=== PATIENT | male | born 1980 | race African-American/Black ===

== ENCOUNTER 2019-02-16 03:25 | Inpatient (IN) | payer OTHER ==
[~2019-02-16 03:25] MED LIST: BUPIVACAINE HCL/PF 0.5% (5 MG/ML) 30 ML VIAL IJ ONE
[2019-02-16] MEDS ORDERED: morphine CARPU-JECT 4 MG/1 ML DISP.SYRIN IVPUSH ONE ×2 (04:15→19:40)
[2019-02-16] MEDS ORDERED: SODIUM CHLORIDE 0.9% 500 ML INFUS.BAG IV ONE (04:18)
[2019-02-16] MEDS ORDERED: ONDANSETRON 4 MG/2 ML VIAL IVPUSH ONE (04:19)
[2019-02-16] MEDS ORDERED: morphine SULFATE 4 MG/ML VIAL ONE ×2 (04:19→19:25)
[2019-02-16] MEDS ORDERED: ONDANSETRON 4 MG/2 ML VIAL ONE (04:20)
--- NOTE | 2019-02-16 04:22 | PDOC ---
Attending Attestation - Resident Resident Name: Pilar Ibanez - ED Attending Attestation I have performed the following: I have examined & evaluated the patient, The case was reviewed & discussed with the resident, I agree w/resident's findings & plan, Exceptions are as noted - HPI HPI: 02/16/19 05:35 Mr Browne is a 38 yo M who presents to the ER with a complaint of abdominal pain , nausea, vomiting Pt reports RLQ pain which began this afternoon Pain is described as sharp, located in the RLQ, no associated flank pain (+) nausea (+) vomiting (>10 episodes of vomiting). No constipation/diarrhea, fevers/chills. - Physicial Exam PE: 02/16/19 04:22 GENERAL: The patient is in no acute distress. ENT: Moist mucous membranes. NECK: Normal range of motion LUNGS: Breath sounds equal, clear to auscultation bilaterally. No wheezes, and no crackles. HEART:Regular rate and rhythm, normal S1 and S2 without murmur, rub or gallop. ABDOMEN: Soft, lower abdominal tenderness to palpation, no involuntary guarding or rebound EXTREMITIES: Normal range of motion, no edema. NEUROLOGICAL: Cranial nerves II through XII grossly intact. Normal speech. No focal neurological deficits. SKIN: Warm, Dry, normal turgor, no rashes or lesions noted. 02/16/19 05:38 - Medical Decision Making 02/16/19 05:38 38 yo M presenting wiht abdominal pain DD: Appendicitis, colitis, enteritis, gastroenteritis, obstruction, cholecystitis, gastritis, gastric ulcer, diverticulitis Will do Labs CT IVF Analgesia/Antiemetics/IVF Re Assess 02/18/19 11:54 Laboratory Tests 02/16/19 02/16/19 02/16/19 04:10 04:10 04:50 WBC 17.8 H Hgb 15.0 Hct 44.3 Plt Count 221 Neutrophils % 88.6 H Lymphocytes % 4.9 L INR BUN 10.4 Creatinine 0.8 Urine Ketones 1+ H Urine Blood Negative Urine Nitrite Negative Ur Leukocyte Esterase 1+ H Urine WBC (Auto) 23 Urine RBC (Auto) 1 02/16/19 04:50 WBC Hgb Hct Plt Count Neutrophils % Lymphocytes % INR 1.13 H BUN Creatinine Urine Ketones Urine Blood Urine Nitrite Ur Leukocyte Esterase Urine WBC (Auto) Urine RBC (Auto) CT pending Signed out to Dr Corona Clinical impression: likely appendicitis, initial presentation
[2019-02-16 04:43] LABS: BASO % 0.2 % (0-2.0); HEMATOCRIT 44.3 % (35.4-49); LYMPH % 4.9 % (8-40); MCH 32.5 pg (25.7-33.7); MEAN CELL VOLUME 95.8 fl (80-96); MONO % 6.3 % (3.8-10.2); NEUT % 88.6 % (42.8-82.8); PLATELET COUNT 221 K/MM3 (134-434); RBC 4.63 M/mm3 (4.00-5.60); RDW 12.8 % (11.9-15.9); WHITE BLOOD COUNT 17.8 K/mm3 (4.0-10.0)
[2019-02-16 05:02] LABS: EPI CELLS 4.6 /HPF (0-5/HPF); HYALINE CASTS 30 /lpf (0-8); URINE APPEARANCE CLEAR; URINE BACTERIA 1.5 /hpf (NEGATIVE); URINE BILIRUBIN NEGATIVE (NEGATIVE); URINE COLOR YELLOW; URINE GLUCOSE (UA) NEGATIVE (NEGATIVE); URINE KETONE 1+ (NEGATIVE); URINE LEUK ESTERASE 1+ (NEGATIVE); URINE NITRITE NEGATIVE (NEGATIVE); URINE PROTEIN NEGATIVE (NEGATIVE); URINE RBC 1 /hpf (0-4); URINE WBC 23 /hpf (0-5)
--- NOTE | 2019-02-16 05:05 | PDOC ---
History of Present Illness - General Chief Complaint: Pain, Acute Stated Complaint: ABD PAIN,VOMITING Time Seen by Provider: 02/16/19 04:10 History Source: Patient Exam Limitations: No Limitations - History of Present Illness Initial Comments: 02/16/19 04:43 38 yo M no PMH presenting with RLQ pain. States that it began acutely 1200 afternoon, sharp, associated with nausea and >10 episodes of vomiting. Denies CP , SOB, constipation/diarrhea, fevers/chills. Past History - Past Medical History Allergies/Adverse Reactions: Allergies Allergy/AdvReac Type Severity Reaction Status Date / Time No Known Allergies Allergy Verified 02/16/19 03:45 Home Medications: Ambulatory Orders NK [No Known Home Medication] 02/16/19 COPD: No - Psycho Social/Smoking Cessation Hx Smoking History: Never smoked Have you smoked in the past 12 months: No Information on smoking cessation initiated: No Hx Alcohol Use: No Drug/Substance Use Hx: No Review of Systems - Review of Systems Constitutional: No: Chills, Diaphoresis, Fever HEENTM: No: Recent change in vision, Ear Discharge, Hearing Loss, Difficulty Swallowing Respiratory: No: Cough, Shortness of Breath Cardiac (ROS): No: Chest Pain ABD/GI: Yes: Nausea, Vomiting. No: Constipated, Diarrhea : No: Burning, Dysuria, Discharge, Frequency, Flank Pain, Hematuria Musculoskeletal: No: Back Pain, Muscle Pain Neurological: No: Headache, Numbness, Seizure, Weakness *Physical Exam - Vital Signs Last Vital Signs Temp Pulse Resp BP Pulse Ox 98.9 F 64 20 126/62 99 02/16/19 03:45 02/16/19 03:45 02/16/19 03:45 02/16/19 03:45 02/16/19 03:45 - Physical Exam Comments: 02/16/19 04:46 Gen: well-developed, well-nourished, appears to be in distress Neuro: AAOX4, CN II-XII intact, FTN intact, EOMI, PERRLA HEENT: atraumatic, normocephalic Neck: trachea midline, supple CV: regular rate, regular rhythm Pulm: CTA b/l, no wheezing Abd: soft, non-distended, ttp in RLQ, negative Rovsing, no rebound MSK: full ROM, intact pulses Extr: no edema, no deformities Skin: warm, dry ED Treatment Course - LABORATORY CBC & Chemistry Diagram: 02/16/19 04:10 02/16/19 20:30 - Medications Given in the ED: ED Medications Discontinued Medications Generic Name Dose Route Start Last Admin Trade Name Jude PRN Reason Stop Dose Admin Morphine Sulfate 4 mg 02/16/19 04:15 02/16/19 04:23 Morphine Injection - IVPUSH 02/16/19 04:16 4 mg ONCE ONE Administration Ondansetron HCl 4 mg 02/16/19 04:19 02/16/19 04:23 Zofran Injection IVPUSH 02/16/19 04:20 4 mg ONCE ONE Administration Sodium Chloride 1,000 ml 02/16/19 04:18 02/16/19 04:18 Normal Saline - IV 02/16/19 04:19 1,000 ml ONCE ONE Administration Medical Decision Making - Medical Decision Making 02/16/19 04:45 Concern for appendicitis. - labs - morphine, IV fluids, Zofran - CT abd/pelvis - likely admit for surgery 02/16/19 05:32 WBC 17.8 02/16/19 07:00 Patient with appendicitis. Will give Zosyn, get pre-op EKG. Get surgery on board , get patient admitted. 02/16/19 07:[address] Hess, will get patient admitted to hospitalist. Discharge - Discharge Information Problems reviewed: Yes Clinical Impression/Diagnosis: Appendicitis Condition: Guarded - Follow up/Referral - Patient Discharge Instructions - Post Discharge Activity
[2019-02-16 05:08] LABS: ALBUMIN 4.4 g/dl (3.4-5.0); BLOOD UREA NITROGEN 10.4 mg/dL (7-18); CALCIUM 9.2 mg/dL (8.5-10.1); CREATININE 0.8 mg/dL (0.55-1.3); POTASSIUM 3.5 mmol/L (3.5-5.1); TOT PROT 7.5 g/dl (6.4-8.2)
[2019-02-16 05:24] LABS: INR 1.13 (0.83-1.09); PROTHROMBIN TIME (PATIENT) 13.4 SEC (9.7-13.0)
[2019-02-16] MEDS ORDERED: LACTATED RINGERS SOLUTION 1,000 ML/1,000 ML INFUS.BAG IV STA (05:48)
[2019-02-16] MEDS ORDERED: PIPERACILLIN/TAZOB 3.375 GM 3.375 GM in DEXTROSE 5%-WATER - 50 ML IVPB ONE (07:04)
[2019-02-16] MEDS ORDERED: ACETAMINOPHEN 1000 MG/100 ML VIAL (NON FORMULARY) IVPB ONE ×2 (07:10→10:26)
--- NOTE | 2019-02-16 07:12 | PDOC ---
*Physical Exam - Vital Signs Last Vital Signs Temp Pulse Resp BP Pulse Ox 98.7 F 68 18 121/66 99 02/16/19 06:13 02/16/19 06:13 02/16/19 06:13 02/16/19 06:13 02/16/19 06:13 ED Treatment Course - LABORATORY CBC & Chemistry Diagram: 02/16/19 04:10 02/16/19 04:10 - ADDITIONAL ORDERS Additional order review: Laboratory Results 02/16/19 02/16/19 02/16/19 04:50 04:50 04:50 PT with INR 13.40 H INR 1.13 H PTT (Actin FS) 28.5 Sodium Potassium Chloride Carbon Dioxide Anion Gap BUN Creatinine Est GFR (CKD-EPI)AfAm Est GFR (CKD-EPI)NonAf Random Glucose Calcium Total Bilirubin AST ALT Alkaline Phosphatase Total Protein Albumin Lipase Urine Color Urine Appearance Urine pH Ur Specific [place] Urine Protein Urine Glucose (UA) Urine Ketones Urine Blood Urine Nitrite Urine Bilirubin Urine Urobilinogen Ur Leukocyte Esterase Urine WBC (Auto) Urine RBC (Auto) Urine Casts (Auto) U Epithel Cells (Auto) U Sm Round Cell (Auto) Urine Bacteria (Auto) Blood Type O POSITIVE Antibody Screen Negative 02/16/19 02/16/19 02/16/19 04:50 04:10 04:10 PT with INR INR PTT (Actin FS) Sodium 140 Potassium 3.5 Chloride 105 Carbon Dioxide 26 Anion Gap 9 BUN 10.4 Creatinine 0.8 Est GFR (CKD-EPI)AfAm 131.34 Est GFR (CKD-EPI)NonAf 113.32 Random Glucose 104 Calcium 9.2 Total Bilirubin 2.0 H AST 12 L ALT 20 Alkaline Phosphatase 70 Total Protein 7.5 Albumin 4.4 Lipase Cancelled 56 L Urine Color Yellow Urine Appearance Clear Urine pH 6.0 Ur Specific [place] 1.022 Urine Protein Negative Urine Glucose (UA) Negative Urine Ketones 1+ H Urine Blood Negative Urine Nitrite Negative Urine Bilirubin Negative Urine Urobilinogen 1.0 Ur Leukocyte Esterase 1+ H Urine WBC (Auto) 23 Urine RBC (Auto) 1 Urine Casts (Auto) 30 U Epithel Cells (Auto) 4.6 U Sm Round Cell (Auto) none seen Urine Bacteria (Auto) 1.5 Blood Type Antibody Screen 02/16/19 04:10 RBC 4.63 MCV 95.8 MCHC 34.0 RDW 12.8 MPV 8.0 Neutrophils % 88.6 H Lymphocytes % 4.9 L Monocytes % 6.3 Eosinophils % 0.0 Basophils % 0.2 - Medications Given in the ED: ED Medications Discontinued Medications Generic Name Dose Route Start Last Admin Trade Name Freq PRN Reason Stop Dose Admin Lactated Ringer's 1,000 ml in 1,000 mls @ 1,000 mls/hr 02/16/19 05:48 06:31 Lactated Ringers Solution IV 02/16/19 06:47 1,000 mls/hr ONCE STA Administration Morphine Sulfate 4 mg 02/16/19 04:15 02/16/19 04:23 Morphine Injection - IVPUSH 02/16/19 04:16 4 mg ONCE ONE Administration Ondansetron HCl 4 mg 02/16/19 04:19 02/16/19 04:23 Zofran Injection IVPUSH 02/16/19 04:20 4 mg ONCE ONE Administration Sodium Chloride 1,000 ml 02/16/19 04:18 02/16/19 04:18 Normal Saline - IV 02/16/19 04:19 1,000 ml ONCE ONE Administration Medical Decision Making - Medical Decision Making 02/16/19 07:12 - Sign out received from Dr. Ibanez
[2019-02-16] MEDS ORDERED: PIPERACILLIN/TAZOB 3.375 GM 3.375 GM/50 ML BAG IVPB ONE (07:13)
[2019-02-16] MEDS ORDERED: ACETAMINOPHEN INJECTION 100 ML IVPB ONE ×2 (07:13→10:59)
--- NOTE | 2019-02-16 08:25 | CONSULT ---
- Consultation REQUESTING PROVIDER: Latha LEBRON CONSULT REQUEST: We have been asked to surgically evaluate this patient for acute appendicitis PCP: HISTORY OF PRESENT ILLNESS: PRATIBHA who is a 38 y/o male who presented to the [facility] ED with RLQ abdominal pain. He tates that it began acutely 1200 afternoon, sharp 02/15/19, associated with nausea and >10 episodes of vomiting. Denies CP, SOB, constipation/diarrhea, fevers/chills.He never had this before; he denies any other GI/ c/o. PMHx: none PSHx: none Home Medications Medication Instructions Recorded NK [No Known Home Medication] 02/16/19 Allergies Allergy/AdvReac Type Severity Reaction Status Date / Time No Known Allergies Allergy Verified 02/16/19 03:45 REVIEW OF SYSTEMS: CONSTITUTIONAL: Absent: fever, chills, diaphoresis, generalized weakness, malaise, loss of appetite, weight change CARDIOVASCULAR: Absent: chest pain, syncope, palpitations, irregular heart rate, lightheadedness , peripheral edema RESPIRATORY: Absent: cough, shortness of breath, dyspnea with exertion, wheezing, stridor, hemoptysis GASTROINTESTINAL: Present: abdominal pain, abdominal distension, nausea, vomiting Absent: diarrhea , constipation, melena, hematochezia GENITOURINARY: Absent: dysuria, frequency, urgency, hesitancy, hematuria, flank pain, genital pain MUSCULOSKELETAL: Absent: myalgia, arthralgia, joint swelling, back pain, neck pain SKIN: Absent: rash, itching, pallor HEMATOLOGIC/IMMUNOLOGIC: Absent: easy bleeding, easy bruising, lymphadenopathy NEUROLOGIC: Absent: headache, focal weakness, paresthesias, dizziness, unsteady gait, seizure, mental status changes, bladder or bowel incontinence PSYCHIATRIC: Absent: anxiety, depression, suicidal or homicidal ideation, hallucinations. PHYSICAL EXAM: GENERAL: Awake, alert, and fully oriented, in no acute distress. HEAD: Normal with no signs of trauma. EYES: PERRL, sclera anicteric, conjunctiva clear. NECK: Normal ROM, supple without lymphadenopathy, JVD, or masses. ABDOMEN: Soft, tender RLQ w/guarding and rebound, not distended, normoactive bowel sounds, , no masses, no hernias No organomegaly.Rovsings/psoas and obturator signs are present MUSCULOSKELETAL: Normal ROM at all joints. No bony deformities or tenderness. No CVA tenderness. UPPER EXTREMITIES: 2+ pulses, warm, well-perfused. No cyanosis. Cap refill <2 seconds. No peripheral edema. LOWER EXTREMITIES: 2+ pulses, warm, well-perfused. No calf tenderness. No peripheral edema. NEUROLOGICAL: Normal speech, gait not observed. PSYCH: Cooperative. Good eye contact. Appropriate mood and affect. SKIN: Warm, dry, normal turgor, no rashes or lesions noted. Vital Signs Temperature 98.7 F 02/16/19 06:13 Pulse Rate 68 02/16/19 06:13 Respiratory Rate 18 02/16/19 06:13 Blood Pressure 121/66 02/16/19 06:13 O2 Sat by Pulse Oximetry (%) 99 02/16/19 06:13 Lab Results WBC 17.8 K/mm3 (4.0-10.0) H 02/16/19 04:10 RBC 4.63 M/mm3 (4.00-5.60) 02/16/19 04:10 Hgb 15.0 GM/dL (11.7-16.9) 02/16/19 04:10 Hct 44.3 % (35.4-49) 02/16/19 04:10 MCV 95.8 fl (80-96) 02/16/19 04:10 MCHC 34.0 g/dl (32.0-35.9) 02/16/19 04:10 RDW 12.8 % (11.9-15.9) 02/16/19 04:10 Plt Count 221 K/MM3 (134-434) 02/16/19 04:10 Sodium 140 mmol/L (136-145) 02/16/19 04:10 Potassium 3.5 mmol/L (3.5-5.1) 02/16/19 04:10 Chloride 105 mmol/L (98-107) 02/16/19 04:10 Carbon Dioxide 26 mmol/L (21-32) 02/16/19 04:10 Anion Gap 9 MMOL/L (8-16) 02/16/19 04:10 BUN 10.4 mg/dL (7-18) 02/16/19 04:10 Creatinine 0.8 mg/dL (0.55-1.3) 02/16/19 04:10 Random Glucose 104 mg/dL (74-106) 02/16/19 04:10 Calcium 9.2 mg/dL (8.5-10.1) 02/16/19 04:10 Blood Type O POSITIVE 02/16/19 04:50 Antibody Screen Negative 02/16/19 04:50 INR 1.13 (0.83-1.09) H 02/16/19 04:50 CT scan a/p reviewed and c/w acute appendicitis w/o abscess/perforation or phlegmon. IMP: acute appendicitis PLAN: For lap appendectomy possible open; r/b/t/a's d/w the patient and informed consent obtained. Pablo Hess MD FACS
[2019-02-16] MEDS ORDERED: ROCURONIUM BROMIDE 50 MG/5 ML SYRINGE ONE (08:35)
[2019-02-16] MEDS ORDERED: MIDAZOLAM HCL 2 MG/2 ML SINGLE DOSE VIAL ONE (08:35)
[2019-02-16] MEDS ORDERED: SUCCINYLCHOLINE CHLORIDE 200 MG/10 ML SYRINGE ONE (08:35)
[2019-02-16] MEDS ORDERED: fentaNYL CITRATE 250 MCG/5 ML VIAL ONE (08:35)
[2019-02-16] MEDS ORDERED: PROPOFOL 20 ML ONE ×2 (08:35→09:45)
[2019-02-16] MEDS ORDERED: HYDROmorphone HCl 2 MG/ML VIAL ONE (09:03)
[2019-02-16] MEDS ORDERED: NEOSTIGMINE METHYLSULFATE 0.5 MG/ML - 10 ML MDV ONE (09:21)
[2019-02-16] MEDS ORDERED: KETOROLAC TROMETHAMINE 30 MG/1 ML VIAL ONE (09:21)
[2019-02-16] MEDS ORDERED: DEXAMETHASONE SOD PHOSPHATE 4 MG/1 ML VIAL ONE (09:21)
[2019-02-16] MEDS ORDERED: BUPIVACAINE HCL/PF 0.5% (5 MG/ML) 30 ML VIAL IJ ONE (09:45)
--- NOTE | 2019-02-16 10:21 | OP ---
Operative Note - Note: Operative Date: 02/16/19 Pre-Operative Diagnosis: acute appendicitis Operation: laparoscopic appendectomy Findings: acute retrocecal appendicitis Post-Operative Diagnosis: Same as Pre-op Surgeon: Pablo Hess Anesthesiologist/FELLER MACHINE OPERATOR: Sebastian Grossman Anesthesia: General Specimens Removed: appendix Estimated Blood Loss (mls): 15 Drains & Tubes with Location: none
[2019-02-16] MEDS ORDERED: ONDANSETRON 4 MG/2 ML VIAL IVPUSH PRN (10:26)
[2019-02-16] MEDS ORDERED: PROMETHAZINE HCL 25 MG/1 ML VIAL IVPB PRN (10:26)
[2019-02-16] MEDS ORDERED: LACTATED RINGERS SOLUTION 1,000 ML/1,000 ML INFUS.BAG IV SCH ×2 (10:30→10:55)
[2019-02-16] MEDS ORDERED: ACETAMINOPHEN 325 MG TABLET (FP) PO PRN (12:26)
--- NOTE | 2019-02-16 14:08 | PN ---
Teaching Attending Note Name of Resident: Elizabeth Brown ATTENDING PHYSICIAN STATEMENT I saw and evaluated the patient. I reviewed the resident's note and discussed the case with the resident. I agree with the resident's findings and plan as documented with exceptions below. SUBJECTIVE: 38 yom with no significant PMHx comes with sudden onset of sharp RLQ abdominal pain, nausea, mulitiple episodes of non bloody vomitus and few episodes of watery stool and subjective fevers. Found with acute appendicitis on CT A/p Currently in PACU, s/p lap appendectomy. Patient denies any pain currently, awake and appropriate. OBJECTIVE: Vital Signs Period Temp Pulse Resp BP Sys/Mott Pulse Ox Last 24 Hr 98 F-99 F 62-834 16-20 121-132/62-88 98-100 Intake & Output 02/13/19 02/14/19 02/15/19 02/16/19 23:59 23:59 23:59 23:59 Intake Total 1500 Output Total 160 Balance 1340 Weight 150 lb GENERAL: Awake, alert, and fully oriented, in no acute distress. HEAD: Normal with no signs of trauma. EYES: Pupils equal, round and reactive to light, extraocular movements intact, sclera anicteric, conjunctiva clear. No lid lag. EARS, NOSE, THROAT: Ears normal, nares patent, oropharynx clear without exudates. Moist mucous membranes. NECK: Normal range of motion, supple, no JVD noted LUNGS: Breath sounds equal, clear to auscultation bilaterally. No wheezes, and no crackles. No accessory muscle use. HEART: Regular rate and rhythm, normal S1 and S2 ABDOMEN: Soft, non distended, mild bleeding around umbilical laparoscopic site, non tender throughout currently, no voluntary or involuntary guarding or rigidity, pos bowel sounds MUSCULOSKELETAL: Normal range of motion at all joints. No bony deformities or tenderness. No CVA tenderness. UPPER EXTREMITIES: 2+ pulses, warm, well-perfused. No cyanosis. No clubbing. No peripheral edema. LOWER EXTREMITIES: 2+ pulses, warm, well-perfused. No calf tenderness. No peripheral edema. NEUROLOGICAL: AAOx3, facial symmetry, speech normal, moves all extremities freely, no gross focal deficit. gait deferred. PSYCHIATRIC: Cooperative. Good eye contact. Appropriate mood and affect. SKIN: Warm, dry, normal turgor, no rashes or lesions noted, normal capillary refill. Home Medications Medication Instructions Recorded NK [No Known Home Medication] 02/16/19 Active Medications Acetaminophen (Tylenol -) 325 mg PO Q4H PRN PRN Reason: PAIN SCALE 6-10 Lactated Ringer's (Lactated Ringers Solution) 1,000 ml in 1,000 mls @ 100 mls/ hr IV ASDIR ERIBERTO Last Admin: 02/16/19 10:12 Dose: 400 mls Ondansetron HCl (Zofran Injection) 4 mg IVPUSH Q6H PRN PRN Reason: NAUSEA AND/OR VOMITING Oxycodone HCl (Roxicodone -) 5 mg PO Q4H PRN PRN Reason: PAIN SCALE 6-10 Laboratory Results - last 24 hr 02/16/19 02/16/19 02/16/19 04:10 04:10 04:10 WBC 17.8 H RBC 4.63 Hgb 15.0 Hct 44.3 MCV 95.8 MCH 32.5 MCHC 34.0 RDW 12.8 Plt Count 221 MPV 8.0 Absolute Neuts (auto) 15.7 H Neutrophils % 88.6 H Lymphocytes % 4.9 L Monocytes % 6.3 Eosinophils % 0.0 Basophils % 0.2 Nucleated RBC % 0 PT with INR INR PTT (Actin FS) Sodium 140 Potassium 3.5 Chloride 105 Carbon Dioxide 26 Anion Gap 9 BUN 10.4 Creatinine 0.8 Est GFR (CKD-EPI)AfAm 131.34 Est GFR (CKD-EPI)NonAf 113.32 Random Glucose 104 Calcium 9.2 Total Bilirubin 2.0 H AST 12 L ALT 20 Alkaline Phosphatase 70 Total Protein 7.5 Albumin 4.4 Lipase 56 L Cancelled Urine Color Urine Appearance Urine pH Ur Specific [place] Urine Protein Urine Glucose (UA) Urine Ketones Urine Blood Urine Nitrite Urine Bilirubin Urine Urobilinogen Ur Leukocyte Esterase Urine WBC (Auto) Urine RBC (Auto) Urine Casts (Auto) U Epithel Cells (Auto) U Sm Round Cell (Auto) Urine Bacteria (Auto) Blood Type Antibody Screen 02/16/19 02/16/19 02/16/19 04:50 04:50 04:50 WBC RBC Hgb Hct MCV MCH MCHC RDW Plt Count MPV Absolute Neuts (auto) Neutrophils % Lymphocytes % Monocytes % Eosinophils % Basophils % Nucleated RBC % PT with INR 13.40 H INR 1.13 H PTT (Actin FS) Sodium Potassium Chloride Carbon Dioxide Anion Gap BUN Creatinine Est GFR (CKD-EPI)AfAm Est GFR (CKD-EPI)NonAf Random Glucose Calcium Total Bilirubin AST ALT Alkaline Phosphatase Total Protein Albumin Lipase Urine Color Yellow Urine Appearance Clear Urine pH 6.0 Ur Specific [place] 1.022 Urine Protein Negative Urine Glucose (UA) Negative Urine Ketones 1+ H Urine Blood Negative Urine Nitrite Negative Urine Bilirubin Negative Urine Urobilinogen 1.0 Ur Leukocyte Esterase 1+ H Urine WBC (Auto) 23 Urine RBC (Auto) 1 Urine Casts (Auto) 30 U Epithel Cells (Auto) 4.6 U Sm Round Cell (Auto) none seen Urine Bacteria (Auto) 1.5 Blood Type O POSITIVE Antibody Screen Negative 02/16/19 02/16/19 04:50 06:30 WBC RBC Hgb Hct MCV MCH MCHC RDW Plt Count MPV Absolute Neuts (auto) Neutrophils % Lymphocytes % Monocytes % Eosinophils % Basophils % Nucleated RBC % PT with INR INR PTT (Actin FS) 28.5 Sodium Potassium Chloride Carbon Dioxide Anion Gap BUN Creatinine Est GFR (CKD-EPI)AfAm Est GFR (CKD-EPI)NonAf Random Glucose Calcium Total Bilirubin AST ALT Alkaline Phosphatase Total Protein Albumin Lipase Urine Color Urine Appearance Urine pH Ur Specific [place] Urine Protein Urine Glucose (UA) Urine Ketones Urine Blood Urine Nitrite Urine Bilirubin Urine Urobilinogen Ur Leukocyte Esterase Urine WBC (Auto) Urine RBC (Auto) Urine Casts (Auto) U Epithel Cells (Auto) U Sm Round Cell (Auto) Urine Bacteria (Auto) Blood Type O POSITIVE Antibody Screen CT A/P results reviewed ASSESSMENT AND PLAN: 38 yom with acute appendicitis. -Acute retrocecal appendicitis s/p laparoscopic appendectomy Plan: Surgery input noted. Clears as tolerated, IV hydration. Discussed with Dr. Hess, hold off on abx. D/c velásquez, ambulation, incentive spirometry DVTPPX per surgery Dispo d/c in 24 hours if doing well, tolerating diet and no concerns. Discussed with patient,care co-ordinated with ED and surgery total admit time 65 min.
--- NOTE | 2019-02-16 14:55 | EKG ---
Test Reason : Blood Pressure : / mmHG Vent. Rate : 064 BPM Atrial Rate : 064 BPM P-R Int : 136 ms QRS Dur : 084 ms QT Int : 394 ms P-R-T Axes : 063 075 063 degrees QTc Int : 406 ms NORMAL SINUS RHYTHM NORMAL ECG NO PREVIOUS ECGS AVAILABLE Confirmed by Sadie Levin ([id number]) on 02/16/2019 2:55:31 PM Referred By: Confirmed By:Sadie Levin
[2019-02-16] MEDS: oxyCODONE HCL 5 MG TABLET PO PRN (15:02)
--- NOTE | 2019-02-16 15:02 | HP ---
CHIEF COMPLAINT: Abdominal Pain PCP: HISTORY OF PRESENT ILLNESS: 38 y/o M with no significant PMHx presents with RLQ Pain. Patient says the pain began suddenly around noon the day; described as a constant sharp 10/10 without radiation accompanied by > 10 episodes of NBNB vomiting. Additionally endorses multiple watery stools and subjective fevers prompting him to visit [facility]. This is the first time he has experienced this pain. No associated triggering or reliving factors. No associated trauma. Denies any chills. chest pain, SOB, dysuria, diarrhea, constipation. ER course was notable for: (1) (2) (3) Recent Travel: Denies PAST MEDICAL HISTORY: Denies PAST SURGICAL HISTORY: Denies Social History: Smoking: Denies Alcohol: Occasionally Drugs: Marijuana use 4x weekly Allergies No Known Allergies Allergy (Verified 02/16/19 03:45) HOME MEDICATIONS: Home Medications Medication Instructions Recorded NK [No Known Home Medication] 02/16/19 REVIEW OF SYSTEMS As per HPI PHYSICAL EXAMINATION Vital Signs - 24 hr 02/16/19 02/16/19 02/16/19 03:45 06:13 10:12 Temperature 98.9 F 98.7 F 98.4 F Pulse Rate 64 834 H Pulse Rate [ 68 Right] Respiratory 20 18 16 Rate Blood Pressure 126/62 127/88 Blood Pressure 121/66 [Arm] O2 Sat by Pulse 99 99 99 Oximetry (%) 02/16/19 02/16/19 02/16/19 10:25 10:40 10:55 Temperature Pulse Rate 76 77 69 Pulse Rate [ Right] Respiratory 18 18 18 Rate Blood Pressure 127/70 121/81 122/70 Blood Pressure [Arm] O2 Sat by Pulse 100 99 98 Oximetry (%) 02/16/19 02/16/19 11:10 12:21 Temperature 99 F 98 F Pulse Rate 62 84 Pulse Rate [ Right] Respiratory 18 19 Rate Blood Pressure 125/76 132/77 Blood Pressure [Arm] O2 Sat by Pulse 98 Oximetry (%) GENERAL: A&Ox3, NAD HEAD: NCAT EYES: PERRL, EOMI EARS, NOSE, THROAT: Moist mucous membranes. NECK: Supple LUNGS: Clear to auscultation bilaterally. No wheezes, no crackles. HEART: Regular rate and rhythm, normal S1 and S2 without murmur ABDOMEN: Soft, no tenderness to palpation, not distended, + bowel sounds, no guarding, no rebound, minimal bleeding noted around surgical dressing site EXTREMITIES: No peripheral edema. NEUROLOGICAL: Cranial nerves II-XII intact. Normal speech. SKIN: Warm, dry Laboratory Results - last 24 hr 02/16/19 02/16/19 02/16/19 04:10 04:10 04:10 WBC 17.8 H RBC 4.63 Hgb 15.0 Hct 44.3 MCV 95.8 MCH 32.5 MCHC 34.0 RDW 12.8 Plt Count 221 MPV 8.0 Absolute Neuts (auto) 15.7 H Neutrophils % 88.6 H Lymphocytes % 4.9 L Monocytes % 6.3 Eosinophils % 0.0 Basophils % 0.2 Nucleated RBC % 0 PT with INR INR PTT (Actin FS) Sodium 140 Potassium 3.5 Chloride 105 Carbon Dioxide 26 Anion Gap 9 BUN 10.4 Creatinine 0.8 Est GFR (CKD-EPI)AfAm 131.34 Est GFR (CKD-EPI)NonAf 113.32 Random Glucose 104 Calcium 9.2 Total Bilirubin 2.0 H AST 12 L ALT 20 Alkaline Phosphatase 70 Total Protein 7.5 Albumin 4.4 Lipase 56 L Cancelled Urine Color Urine Appearance Urine pH Ur Specific [place] Urine Protein Urine Glucose (UA) Urine Ketones Urine Blood Urine Nitrite Urine Bilirubin Urine Urobilinogen Ur Leukocyte Esterase Urine WBC (Auto) Urine RBC (Auto) Urine Casts (Auto) U Epithel Cells (Auto) U Sm Round Cell (Auto) Urine Bacteria (Auto) Blood Type Antibody Screen 02/16/19 02/16/19 02/16/19 04:50 04:50 04:50 WBC RBC Hgb Hct MCV MCH MCHC RDW Plt Count MPV Absolute Neuts (auto) Neutrophils % Lymphocytes % Monocytes % Eosinophils % Basophils % Nucleated RBC % PT with INR 13.40 H INR 1.13 H PTT (Actin FS) Sodium Potassium Chloride Carbon Dioxide Anion Gap BUN Creatinine Est GFR (CKD-EPI)AfAm Est GFR (CKD-EPI)NonAf Random Glucose Calcium Total Bilirubin AST ALT Alkaline Phosphatase Total Protein Albumin Lipase Urine Color Yellow Urine Appearance Clear Urine pH 6.0 Ur Specific [place] 1.022 Urine Protein Negative Urine Glucose (UA) Negative Urine Ketones 1+ H Urine Blood Negative Urine Nitrite Negative Urine Bilirubin Negative Urine Urobilinogen 1.0 Ur Leukocyte Esterase 1+ H Urine WBC (Auto) 23 Urine RBC (Auto) 1 Urine Casts (Auto) 30 U Epithel Cells (Auto) 4.6 U Sm Round Cell (Auto) none seen Urine Bacteria (Auto) 1.5 Blood Type O POSITIVE Antibody Screen Negative 02/16/19 02/16/19 04:50 06:30 WBC RBC Hgb Hct MCV MCH MCHC RDW Plt Count MPV Absolute Neuts (auto) Neutrophils % Lymphocytes % Monocytes % Eosinophils % Basophils % Nucleated RBC % PT with INR INR PTT (Actin FS) 28.5 Sodium Potassium Chloride Carbon Dioxide Anion Gap BUN Creatinine Est GFR (CKD-EPI)AfAm Est GFR (CKD-EPI)NonAf Random Glucose Calcium Total Bilirubin AST ALT Alkaline Phosphatase Total Protein Albumin Lipase Urine Color Urine Appearance Urine pH Ur Specific [place] Urine Protein Urine Glucose (UA) Urine Ketones Urine Blood Urine Nitrite Urine Bilirubin Urine Urobilinogen Ur Leukocyte Esterase Urine WBC (Auto) Urine RBC (Auto) Urine Casts (Auto) U Epithel Cells (Auto) U Sm Round Cell (Auto) Urine Bacteria (Auto) Blood Type O POSITIVE Antibody Screen Active Medications Acetaminophen (Tylenol -) 325 mg PO Q4H PRN PRN Reason: PAIN SCALE 6-10 Last Admin: 02/16/19 15:04 Dose: 325 mg Lactated Ringer's (Lactated Ringers Solution) 1,000 ml in 1,000 mls @ 100 mls/ hr IV ASDIR ERIBERTO Last Admin: 02/16/19 10:12 Dose: 400 mls Ondansetron HCl (Zofran Injection) 4 mg IVPUSH Q6H PRN PRN Reason: NAUSEA AND/OR VOMITING Oxycodone HCl (Roxicodone -) 5 mg PO Q4H PRN PRN Reason: PAIN SCALE 6-10 Last Admin: 02/16/19 15:02 Dose: 5 mg ASSESSMENT/PLAN: 38 y/o M with no significant PMHx presents with RLQ Pain, found to have acute appendicitis. #Acute Appendicitis -S/P Lap Appy (02/16) -General Surgery consulted, appreciate rec's -Received 1 dose pip/tazo in ED; will hold off further abx -Continue IV Hydration via LR @ 100 -Antiemesis via Ondansetron -Analgesia via Acetaminophen, Oxycodone -Clear liquid diet; Advance as per surgery -D/C velásquez once ambulating -Incentive spirometry #FEN -LR @ 100 -Replete Lytes PRN -Clear liquid diet #PPx -DVT: SCDs Dispo: Admit to med-surg Visit type - Emergency Visit Emergency Visit: Yes ED Registration Date: 02/16/19 Care time: The patient presented to the Emergency Department on the above date and was hospitalized for further evaluation of their emergent condition. - New Patient This patient is new to me today: Yes Date on this admission: 02/16/19 - Critical Care Critical Care patient: No ATTENDING PHYSICIAN STATEMENT I saw and evaluated the patient. I reviewed the resident's note and discussed the case with the resident. I agree with the resident's findings and plan as documented. SUBJECTIVE: OBJECTIVE: ASSESSMENT AND PLAN:
[2019-02-16] MEDS: ACETAMINOPHEN 325 MG TABLET (FP) PO PRN (15:04)
[2019-02-16] MEDS ORDERED: HYDROmorphone HCl 2 MG/ML VIAL IVPB ONE ×2 (19:21→19:41)
[2019-02-16] MEDS ORDERED: morphine SULFATE 4 MG/ML VIAL IVPUSH ONE (19:23)
[2019-02-16] MEDS: LACTATED RINGERS SOLUTION 1,000 ML/1,000 ML INFUS.BAG IV SCH (19:42)
--- NOTE | 2019-02-16 19:44 | RAPID ---
Physical Examination Vital Signs: Vital Signs Temperature 97.6 F 02/16/19 18:21 Pulse Rate 100 H 02/16/19 19:40 Respiratory Rate 20 02/16/19 18:21 Blood Pressure 143/68 02/16/19 19:40 O2 Sat by Pulse Oximetry (%) 98 02/16/19 17:56 Labs: CBC, BMP 02/16/19 04:10 02/16/19 04:10 Rapid Response - Rapid Response Assessment: S Rapid response was called overhead at 1918. firmware test engineer team quickly responded. Upon arrival, the patient was in the bed writhing in pain. He described sudden onset 10/10 pain in lower abdominal area. Blood was found on bandage but was not soaked. Muscle spasms happened in right arm and hand during blood pressure monitoring that resolved several minutes later. Pt reassessed after morphine and pain is 6-7/10. He reports muscle spasms have ceased. O 128/112 HR 104 @1921 138/71 HR 109 @1924 128/59 HR 104 @1936 99/78 @1950 A&O, in extreme distress tachycardic, reg rhythm CTAB exquisite tenderness without palpation A/P #abdominal pain s/p appendectomy -morphine 4mg administered -increased fluids to LR 150mL/hr -Dr. Hess notified -vital signs Q2H -KUB not helpful at this time given recent surgery and will have air in abdomen -CTA rescinded given recent surgery; will reassess if pain is not improved. -BMP, Mg, Phos
[2019-02-16 21:51] LABS: BLOOD UREA NITROGEN 8.3 mg/dL (7-18); CALCIUM 8.3 mg/dL (8.5-10.1); MAGNESIUM 1.7 mg/dL (1.8-2.4); PHOSPHOROUS 2.3 mg/dL (2.5-4.9); POTASSIUM 3.7 mmol/L (3.5-5.1)
[2019-02-16] MEDS: MORPHINE SULFATE 2 MG/ML VIAL IVPUSH PRN (22:41)
[2019-02-16] MEDS ORDERED: MAGNESIUM SULF 50% (8.12 MEQ/2 ML-1 GM VIAL) IVPB ONE (22:41)
[2019-02-17] MEDS ORDERED: MAGNESIUM SULF 50% (8.12 MEQ/2 ML-1 GM VIAL) IVPB ONE (01:30)
[2019-02-17] MEDS: LACTATED RINGERS SOLUTION 1,000 ML/1,000 ML INFUS.BAG IV SCH ×2 (04:36→16:07)
[2019-02-17] MEDS: MORPHINE SULFATE 2 MG/ML VIAL IVPUSH PRN (08:33)
[2019-02-17 08:53] LABS: BASO % 0.3 % (0-2.0); EOS % 0.8 % (0-4.5); HEMATOCRIT 29.1 % (35.4-49); HEMOGLOBIN 10.1 GM/dL (11.7-16.9); LYMPH % 17.9 % (8-40); MCH 33.1 pg (25.7-33.7); MCHC 34.6 g/dl (32.0-35.9); MEAN CELL VOLUME 95.5 fl (80-96); MEAN PLT VOLUME 7.5 fl (7.5-11.1); MONO % 9.1 % (3.8-10.2); NEUT % 71.9 % (42.8-82.8); PLATELET COUNT 159 K/MM3 (134-434); RBC 3.04 M/mm3 (4.00-5.60); RDW 12.8 % (11.9-15.9); WHITE BLOOD COUNT 9.9 K/mm3 (4.0-10.0)
[2019-02-17 09:28] LABS: ALBUMIN 3.1 g/dl (3.4-5.0); BILIRUBIN,TOTAL 1.8 mg/dL (0.2-1); BLOOD UREA NITROGEN 7.8 mg/dL (7-18); CALCIUM 8.1 mg/dL (8.5-10.1); MAGNESIUM 2.2 mg/dL (1.8-2.4); PHOSPHOROUS 2.8 mg/dL (2.5-4.9); POTASSIUM 3.6 mmol/L (3.5-5.1); TOT PROT 5.4 g/dl (6.4-8.2)
--- NOTE | 2019-02-17 11:27 | PN ---
Progress Note (short form) - Note Progress Note: Attending Surgeon POD#1 c/o pain at port sites; tolerated liquids and voided; had an episode of agitation and severe pain post op which resolved. Last Vital Signs Temp Pulse Resp BP Pulse Ox 98.5 F 82 18 131/82 98 02/17/19 06:00 02/17/19 06:00 02/17/19 06:00 02/17/19 06:00 02/16/19 21:00 abdo-soft; slightly tympanitic; port sites c/d/i w/ tenderness to palpation; o/ w negative. CBC, BMP 02/17/19 07:52 02/17/19 07:52 IMP: stable post op course PLAN: Continue present tx. recheck CBC and observe; h/h drop ? related to dehydration; doubt surgical blood loss.. Pablo Hess MD FACS
--- NOTE | 2019-02-17 11:58 | OP ---
DATE OF OPERATION: 02/16/2019 PREOPERATIVE DIAGNOSIS: Acute appendicitis. POSTOPERATIVE DIAGNOSIS: Acute appendicitis. PROCEDURE: Laparoscopic appendectomy. SURGEON: Pablo Hess MD ANESTHESIA: General. OPERATIVE FINDINGS: Acute appendicitis and the appendix was retrocecal in nature. The rest of the findings were unremarkable. PROCEDURE: The patient was placed on the operating table in the supine position. After the induction of general anesthesia, patient's abdomen was prepped with ChloraPrep and draped in sterile fashion. A Frazier catheter had been placed after induction of anesthesia. The timeout was taken and pneumoperitoneum established above the umbilicus using a Veress needle to an intraabdominal pressure of 15 mmHg. Additional left lower quadrant and a 12-mm suprapubic port were placed under direct vision without incident. Laparoscopy was carried out and the previously noted findings were observed. The appendix was grasped and using the LigaSure the mesoappendix was serially divided down to the base of the appendix as were some adhesions medially at the base of the appendix. Once completely cleared, a 45- mm purple load Endo ARLETTE was fired across the base of the appendix. Complete hemostasis was verified and the appendix placed in an Endo Catch and brought up to the abdominal wall. Irrigation was carried out with normal saline and again hemostasis verified, and then all ports removed under laparoscopic vision without evidence of bleeding from the port sites and the appendix removed with the suprapubic port. All port sites were infiltrated with 0.5% Marcaine and then the defect at the suprapubic port site was closed with a single 0 Vicryl [id number] suture. All skin incisions were closed with 4-0 Monocryl in a subcuticular fashion followed by Steri- Strips and Band-Aid dressings. The Frazier catheter was removed and the patient aroused from general anesthesia and transferred to the postanesthesia care unit in stable condition awake and alert. ESTIMATED BLOOD LOSS: 15 mL REPLACEMENTS: Crystalloid. DRAINS: None. SPECIMEN: Appendix to pathology. I, Pablo Hess, was physically present in the operating room from the time the patient was placed on the operating room table until he was transferred to the postanesthesia care unit in [place]. MD CHARLY Armando/[id number] [email or web address]
[2019-02-17] MEDS: oxyCODONE HCL 5 MG TABLET PO PRN ×3 (12:31→23:51)
[2019-02-17 12:51] LABS: HEMATOCRIT 31.6 % (35.4-49); HEMOGLOBIN 10.8 GM/dL (11.7-16.9); MCH 32.8 pg (25.7-33.7); MCHC 34.2 g/dl (32.0-35.9); MEAN PLT VOLUME 7.2 fl (7.5-11.1); PLATELET COUNT 177 K/MM3 (134-434); RBC 3.29 M/mm3 (4.00-5.60); RDW 13.1 % (11.9-15.9); WHITE BLOOD COUNT 9.3 K/mm3 (4.0-10.0)
[2019-02-17] MEDS ORDERED: POTASSIUM CHLORIDE TABS 20 MEQ TABLET.ER (FP) PO ONE (13:01)
--- NOTE | 2019-02-17 13:08 | PN ---
Physical Exam: SUBJECTIVE: Patient seen and examined, abdominal pain better, tolerating diet. pain overnight, currently well controlled, no complaints otherwise. OBJECTIVE: Vital Signs Period Temp Pulse Resp BP Sys/Mott Pulse Ox Last 24 Hr 97.6 F-98.8 F 67-110 18-20 99-157/59-112 96-99 Intake & Output 02/14/19 02/15/19 02/16/19 02/17/19 23:59 23:59 23:59 23:59 Intake Total 2100 2300 Output Total 160 Balance 1940 2300 Weight 145 lb 9.6 oz General: lying in bed no acute distress Chest: CTAB, no rales or wheezing Abdomen:soft, improved distension, no bleed at laparoscopic site today, pos bowel sounds, Minimal lower abdominal tenderness (improved), no voluntary or involuntary guarding or rigidity Neck: soft, supple HEENT: PERRL, EOMI Extremities: no edema Laboratory Results - last 24 hr 02/16/19 02/17/19 02/17/19 20:30 07:52 07:52 WBC 9.9 RBC 3.04 L Hgb 10.1 L Hct 29.1 L D MCV 95.5 MCH 33.1 MCHC 34.6 RDW 12.8 Plt Count 159 D MPV 7.5 Absolute Neuts (auto) 7.2 Neutrophils % 71.9 Lymphocytes % 17.9 D Monocytes % 9.1 Eosinophils % 0.8 D Basophils % 0.3 Nucleated RBC % 0 Sodium 142 143 Potassium 3.7 3.6 Chloride 110 H 110 H Carbon Dioxide 26 28 Anion Gap 7 L 6 L BUN 8.3 7.8 Creatinine 1.0 1.0 Est GFR (CKD-EPI)AfAm 110.17 110.17 Est GFR (CKD-EPI)NonAf 95.05 95.05 Random Glucose 101 88 Calcium 8.3 L 8.1 L Phosphorus 2.3 L 2.8 Magnesium 1.7 L 2.2 Total Bilirubin 1.8 H AST 13 L ALT 16 Alkaline Phosphatase 42 L Total Protein 5.4 L Albumin 3.1 L 02/17/19 12:14 WBC 9.3 RBC 3.29 L Hgb 10.8 L Hct 31.6 L MCV 96.0 MCH 32.8 MCHC 34.2 RDW 13.1 Plt Count 177 MPV 7.2 L Absolute Neuts (auto) Neutrophils % Lymphocytes % Monocytes % Eosinophils % Basophils % Nucleated RBC % Sodium Potassium Chloride Carbon Dioxide Anion Gap BUN Creatinine Est GFR (CKD-EPI)AfAm Est GFR (CKD-EPI)NonAf Random Glucose Calcium Phosphorus Magnesium Total Bilirubin AST ALT Alkaline Phosphatase Total Protein Albumin Active Medications Generic Name Dose Route Start Last Admin Trade Name Freq PRN Reason Stop Dose Admin Acetaminophen 325 mg 02/16/19 14:11 02/16/19 15:04 Tylenol - PO 325 mg Q4H PRN Administration PAIN SCALE 6-10 Lactated Ringer's 1,000 ml in 1,000 mls @ 75 mls/hr 02/17/19 13:01 Lactated Ringers Solution IV ASDIR ERIBERTO Ondansetron HCl 4 mg 02/16/19 10:26 Zofran Injection IVPUSH Q6H PRN NAUSEA AND/OR VOMITING Oxycodone HCl 5 mg 02/16/19 12:26 02/17/19 12:31 Roxicodone - PO 5 mg Q4H PRN Administration PAIN SCALE 6-10 Potassium Chloride 40 meq 02/17/19 13:01 K-Dur - PO 02/17/19 13:02 ONCE ONE ASSESSMENT/PLAN: 38 yom with acute appendicitis. -Acute retrocecal appendicitis s/p laparoscopic appendectomy -Acute anemia, suspect from hemodilution/Surgical blood loss Plan: Tolerating diet, overnight events noted. Will d/c morphine, po pain control. Surgery input noted. repeat h/h stable, low concerns for active bleed. Decreased IVF. Encourage ambulation, incentive spirometry DVTPPX per surgery Dispo d/c in 24 hours if doing well, tolerating diet and no concerns. Discussed with patient and nursing, care co-ordinated with surgery. Visit type - Emergency Visit Emergency Visit: Yes ED Registration Date: 02/16/19 Care time: The patient presented to the Emergency Department on the above date and was hospitalized for further evaluation of their emergent condition. - New Patient This patient is new to me today: No - Critical Care Critical Care patient: No - Discharge Referral Referred to [facility] Med P.C.: No
--- NOTE | 2019-02-17 16:36 | PN ---
Progress Note (short form) - Note Progress Note: 38M s/p laparoscopic appendectomy under GA. Tolerating PO. Pain managed. Vital Signs Temperature 97.4 F L 02/17/19 13:19 Pulse Rate 56 L 02/17/19 13:19 Respiratory Rate 20 02/17/19 13:19 Blood Pressure 143/88 02/17/19 13:19 O2 Sat by Pulse Oximetry (%) 99 02/17/19 09:00 Active Medications Acetaminophen (Tylenol -) 325 mg PO Q4H PRN PRN Reason: PAIN SCALE 6-10 Last Admin: 02/16/19 15:04 Dose: 325 mg Lactated Ringer's (Lactated Ringers Solution) 1,000 ml in 1,000 mls @ 75 mls/ hr IV ASDIR ERIBERTO Last Admin: 02/17/19 16:07 Dose: 75 mls/hr Ondansetron HCl (Zofran Injection) 4 mg IVPUSH Q6H PRN PRN Reason: NAUSEA AND/OR VOMITING Oxycodone HCl (Roxicodone -) 5 mg PO Q4H PRN PRN Reason: PAIN SCALE 6-10 Last Admin: 02/17/19 12:31 Dose: 5 mg - No anesthetic complications - Care per primary service
[2019-02-17] MEDS: ACETAMINOPHEN 325 MG TABLET (FP) PO PRN (23:51)
[2019-02-18] MEDS: LACTATED RINGERS SOLUTION 1,000 ML/1,000 ML INFUS.BAG IV SCH (04:51)
[2019-02-18] MEDS: ACETAMINOPHEN 325 MG TABLET (FP) PO PRN (08:00)
[2019-02-18] MEDS: oxyCODONE HCL 5 MG TABLET PO PRN (08:00)
[2019-02-18 08:26] LABS: EOS % 3.2 % (0-4.5); HEMATOCRIT 29.1 % (35.4-49); HEMOGLOBIN 10.1 GM/dL (11.7-16.9); LYMPH % 30.9 % (8-40); MCH 33.3 pg (25.7-33.7); MCHC 34.7 g/dl (32.0-35.9); MEAN CELL VOLUME 95.9 fl (80-96); MEAN PLT VOLUME 7.3 fl (7.5-11.1); MONO % 9.4 % (3.8-10.2); NEUT % 55.5 % (42.8-82.8); PLATELET COUNT 153 K/MM3 (134-434); RBC 3.03 M/mm3 (4.00-5.60); RDW 12.9 % (11.9-15.9); WHITE BLOOD COUNT 5.5 K/mm3 (4.0-10.0)
[2019-02-18 08:57] VITALS: BP 152/85; PULSE 69; TEMP 98.9
--- NOTE | 2019-02-18 12:04 | PN ---
Teaching Attending Note Name of Resident: Anastasiya Collier ATTENDING PHYSICIAN STATEMENT I saw and evaluated the patient. I reviewed the resident's note and discussed the case with the resident. I agree with the resident's findings and plan as documented with exceptions below. SUBJECTIVE: patient seen and examined, pain better, tolerating diet, had a BM, no complaints. OBJECTIVE: Vital Signs Period Temp Pulse Resp BP Sys/Mott Pulse Ox Last 24 Hr 97.4 F-99.3 F 56-88 18-60 118-152/56-88 Intake & Output 02/15/19 02/16/19 02/17/19 02/18/19 23:59 23:59 23:59 23:59 Intake Total 2100 2500 1380 Output Total 160 500 Balance 1940 2500 880 Weight 145 lb 9.6 oz General: lying in bed in no acute distress chest: CTAb, no rales or wheezing neck: soft, supple Abdomen:Soft, NT throughout, laparoscopic dressings clean, no voluntary or involuntary guarding or rigidity, pos bowel sounds Extremities: no edema Home Medications Medication Instructions Recorded NK [No Known Home Medication] 02/16/19 Active Medications Acetaminophen (Tylenol -) 325 mg PO Q4H PRN PRN Reason: PAIN SCALE 6-10 Last Admin: 02/18/19 08:00 Dose: 325 mg Lactated Ringer's (Lactated Ringers Solution) 1,000 ml in 1,000 mls @ 75 mls/ hr IV ASDIR ERIBERTO Last Admin: 02/18/19 04:51 Dose: 75 mls/hr Ondansetron HCl (Zofran Injection) 4 mg IVPUSH Q6H PRN PRN Reason: NAUSEA AND/OR VOMITING Oxycodone HCl (Roxicodone -) 5 mg PO Q4H PRN PRN Reason: PAIN SCALE 6-10 Last Admin: 02/18/19 08:00 Dose: 5 mg Laboratory Results - last 24 hr 02/17/19 02/18/19 12:14 07:40 WBC 9.3 5.5 RBC 3.29 L 3.03 L Hgb 10.8 L 10.1 L Hct 31.6 L 29.1 L MCV 96.0 95.9 MCH 32.8 33.3 MCHC 34.2 34.7 RDW 13.1 12.9 Plt Count 177 153 MPV 7.2 L 7.3 L Absolute Neuts (auto) 3.1 Neutrophils % 55.5 D Lymphocytes % 30.9 D Monocytes % 9.4 Eosinophils % 3.2 D Basophils % 1.0 D Nucleated RBC % 0 ASSESSMENT AND PLAN: 38 yom with acute appendicitis. -Acute retrocecal appendicitis s/p laparoscopic appendectomy -Acute anemia, suspect from hemodilution/Surgical blood loss Plan: doing well, tolerating diet well, pain better. H/h overall stable No hemodynamic stability or concerns for ongoing bleed dc home today with outpatient surgery follow up. Discussed with patient and nursing in detail, all questions answered.
[2019-02-18 14:20] VITALS: BMI 20.7
--- NOTE | 2019-02-18 18:09 | DS ---
Physical Exam: SUBJECTIVE: Patient seen and examined. He reports improved abdominal pain 5/10. It is still in the lower abdomen. He denies fever, chills, nausea, vomiting. He had a BM yesterday. He is tolerating diet well. OBJECTIVE: Vital Signs Period Temp Pulse Resp BP Sys/Mott Pulse Ox Last 24 Hr 98.0 F-99.3 F 56-69 18-60 118-152/56-85 PHYSICAL EXAM GENERAL: The patient is awake, alert, and fully oriented, in no acute distress. HEAD: Normal with no signs of trauma. EYES: PERRL, extraocular movements intact ENT: Ears normal, nares patent, moist mucous membranes. NECK: Trachea midline, full range of motion LUNGS: Breath sounds equal, clear to auscultation bilaterally, no accessory muscle use. HEART: Regular rate and rhythm, no murmur ABDOMEN: Soft, nontender, nondistended, normoactive bowel sounds EXTREMITIES: Warm, well-perfused, no edema. NEUROLOGICAL: Normal speech PSYCH: Normal mood, normal affect. SKIN: Warm, dry, normal turgor LABS Laboratory Results - last 24 hr 02/18/19 07:40 WBC 5.5 RBC 3.03 L Hgb 10.1 L Hct 29.1 L MCV 95.9 MCH 33.3 MCHC 34.7 RDW 12.9 Plt Count 153 MPV 7.3 L Absolute Neuts (auto) 3.1 Neutrophils % 55.5 D Lymphocytes % 30.9 D Monocytes % 9.4 Eosinophils % 3.2 D Basophils % 1.0 D Nucleated RBC % 0 HOSPITAL COURSE: Mr. Browne is a 38y/o male with marijuana use disorder presents with abdominal pain and vomiting with leukocytosis. CT showed acute appendicitis. Lap appendectomy performed with no complication. A rapid response was called later that evening due to extreme abdominal pain. Tetany occurred with blood pressure cuff tightening x2. Electrolytes were replenished. His abdominal pain improved. He was instructed to follow up with surgery. Date of Admission:02/16/19 Date of Discharge: 02/18/19 Minutes to complete discharge: 35 Discharge Summary Problems reviewed: Yes Reason For Visit: APPENDICITIS Condition: Stable - Instructions Diet, Activity, Other Instructions: Hospital Visit: You were admitted to the hospital for abdominal pain and vomiting. You were found to have appendicitis. Your appendix was removed. You had an episode some pain a little while after surgery, but it is now better controlled. You are now able to go home. Your red blood cell level was low during your stay. This might be from the fluids you received. Follow up with a primary care doctor in the next 2-3 weeks to have a CBC lab done to check your hemoglobin to see if it has gone up. Your total bilirubin level was a little high during your stay. This may be due to the appendicitis. Follow up with your doctor for repeat test as below. Medications: Take Tylenol (acetaminophen) or Advil (Motrin or ibuprofen) as directed on the bottle for pain. Follow up with: Dr. Hess, surgery, in 7-10 days. Call his office at the number below to schedule an appointment. Your primary care doctor in 2-3 weeks to check CBC and CMP. If you do not have one, you may follow up with Dr. Nelson (Dr. Collier) at the [facility]. Other instructions: Return to the emergency room if you feel lightheaded or very weak, have chest pain, trouble breathing, a lot of bleeding, or muscle spasms. Try to keep yourself hydrated by drinking water or sports drinks. This will help with muscle spasms. Dr. Hess Discharge Instructions Dear CRYSTAL BROWNE, Post Operative Instructions Physical activity Resume your normal everyday activity as tolerated no heavy lifting or exercise until seen by your surgeon. You may walk unlimited amounts of and climb stairs. You may resume driving the car when you feel safe and comfortable behind the wheel. Wound care If you have a bandage, leave it on, and keep dry for 48 - 72 hours. After that time discard the outer bandage. If there are tapes on the skin under the outer bandage, leave them in place. They will peel off in the next 7 to 10 days. Do Not peel them off. You may shower 2 days after surgery. If there are tapes present on the skin, they can get wet. Diet There are no dietary restrictions. Eat healthy, high-fiber foods. Drink 6 to 8 glasses of liquid each day. This will assist in keeping your bowels are regular. Pain management You may take Tylenol or acetaminophen or Ibuprofen (for example, Motrin, Advil etc.) Any pain prescription medication ordered should be taken as prescribed for moderate to severe pain. Call Dr. Hess for any of the following: Severe pain not relieved by medication Fever of 101 or higher Excessive bleeding or drainage on dressing Inability to urinate Call the office at [phone] for a post operative appointment in 7 - 10 days. Referrals: Walter Nelson MD [Staff Physician] - (Dr. Collier) Pablo Hess MD [Staff Physician] - Disposition: HOME - Home Medications Comprehensive Discharge Medication List: Ambulatory Orders NK [No Known Home Medication] 02/16/19 This patient is new to me today: Yes Date on this admission: 02/18/19 Emergency Visit: Yes ED Registration Date: 02/16/19 Care time: The patient presented to the Emergency Department on the above date and was hospitalized for further evaluation of their emergent condition. Critical Care patient: No - Discharge Referral Referred to [facility] Med P.C.: No ATTENDING PHYSICIAN STATEMENT I saw and evaluated the patient. I reviewed the resident's note and discussed the case with the resident. I agree with the resident's findings and plan as documented. SUBJECTIVE: OBJECTIVE: ASSESSMENT AND PLAN:
--- NOTE | 2019-02-19 17:45 | PATH ---
Surgical Pathology Report Patient Name: CRYSTAL CASTILLO [facility]. Rec. #: [id number] /Age/Gender: 1980 (Age: 38) / M Account: [id number] Location: [address] [place] [address] Taken: 02/16/2019 Received: 02/18/2019 Reported: 02/19/2019 Physicians: Pablo Hess MD Specimen(s) Received APPENDIX Clinical History Acute appendicitis Final Diagnosis APPENDIX, APPENDECTOMY: ACUTE APPENDICITIS AND PERIAPPENDICITIS. Electronically Signed Dewayne Garcia M.D. Gross Description Specimen is received in formalin, labeled "appendix", and consists of an appendix, measuring 6cm in length and 0.9cm in average diameter. The serosal (external) surface of the appendix is dull and covered by purulent material. On opening the appendix contains purulent material. The mucosal surface is red-brown and ulcerated. Splitting Machine Operator Helper sections are submitted in one cassette. ISAAC/02/18/2019 michelle/02/18/2019
== END 2019-02-18 12:46 | disposition home or self-care (01) | DRG 225 ==
LOC: JER 03:25 → JERBED 07:12 → J5S 11:28 → J6S 02-17 15:33
PROVIDERS: ADMIT Hospitalist; ATTEND Hospitalist
PROC: 0DTJ4ZZ Resection of Appendix, Percutaneous Endoscopic Approach (ICD-10-PCS; principal; 2019-02-16 08:50)
DX: K35.80 Unspecified acute appendicitis (principal); R00.0 Tachycardia, unspecified; D62 Acute posthemorrhagic anemia; R11.10 Vomiting, unspecified; D72.829 Elevated white blood cell count, unspecified
CPT/HCPCS: 36415; 74177-TC; 80048; 80053; 81003; 83690; 83735; 84100; 85025; 85027; 85610; 85730; 86850; 86900; 86901; 88304-TC; 93005; 93010; 94010; 94760; 97116-GP; 97161-GP; 99283-25; J0131

== ENCOUNTER 2019-04-12 08:20 | Emergency (ER) | payer OTHER ==
[2019-04-12 08:28] VITALS: BMI 21.5
[2019-04-12] MEDS ORDERED: ACETAMINOPHEN 1000 MG/100 ML VIAL (NON FORMULARY) IVPB ONE (09:11)
[2019-04-12] MEDS ORDERED: SODIUM CHLORIDE 1,000 ML IV STA (09:12)
--- NOTE | 2019-04-12 09:13 | PDOC ---
Attending Attestation - Resident Resident Name: Jenni Hong - ED Attending Attestation I have performed the following: I have examined & evaluated the patient, The case was reviewed & discussed with the resident, I agree w/resident's findings & plan, Exceptions are as noted - HPI HPI: 04/12/19 09:14 Mr Browne is a 38 yo M who presents to the ER with a complaint of abdominal pain He has a history of marijuana use disorder, 2 months s/p laproscopic appendectomy Per chart review, a rapid response was called for sudden onset 10/10 abdominal pain Pt reports that he was in his usual state of health He awoke at approximately 2 am with severe abdominal pain ,rated 10/10, constant , located in the lower abdomen, no alleviating factors Reports nause and vomiting Last used marijuana yesterday No fevers or chills No flatus Unable to tell me when his last bowel movement was 04/12/19 09:38 04/12/19 09:39 04/12/19 09:41 - Physicial Exam PE: 04/12/19 09:13 GENERAL: The patient is writhing in pain ENT: Ears normal, nares patent, oropharynx clear without exudates. Moist mucous membranes. NECK: Normal range of motion, supple LUNGS: Breath sounds equal, clear to auscultation bilaterally. No wheezes, and no crackles. HEART:Regular rate and rhythm, normal S1 and S2 without murmur, rub or gallop. ABDOMEN: Guarding, tender to palpation in the lower abdomen, no distention EXTREMITIES: Normal range of motion, no edema. NEUROLOGICAL: Cranial nerves II through XII grossly intact. Normal speech. No focal neurological deficits. SKIN: Warm, Dry, normal turgor, no rashes or lesions noted. 04/12/19 09:34 - Medical Decision Making 04/12/19 09:37 38 yo m presenting to the ER with a complaint of abdominal pain, (+) vomiting, no flatus DD: colitis, enteritis, gastroenteritis, obstruction, cholecystitis, gastritis, gastric ulcer, diverticulitis, cyclical vomiting syndrome Will do: Labs IV hydration Pain medications CT Re Assess 04/12/19 10:33 Laboratory Tests 04/12/19 04/12/19 04/12/19 09:15 09:15 09:15 WBC 7.9 Hgb 15.2 Hct 44.3 D Plt Count 235 D INR 0.92 BUN 10.[address] pending 04/12/19 15:01 Case reviewed with surgery Recommended repeat CT with po contrast CT with po contrast performed Demonstrates low attenuation mass like density in the left hemipelvis, inferiorly/anteriorly is again seen wiht mild stranding of the surrounding fat suggestive of a complex collection, rule out abscess Partially distended distal discending and sigmoid colon wiht suggestion of wall thickening, rule ou colitis Case reviewed with Dr. Lopez She is refusing admission because IR is not available Requesting transfer Call placed to [facility] transfer per the Dr. Lopez's request Clinical impression: Abdominal pain, initial presentation Possible intra-abdominal abscess, initial presentation
[2019-04-12] MEDS ORDERED: morphine CARPU-JECT 4 MG/1 ML DISP.SYRIN IVPUSH ONE (09:17)
[2019-04-12] MEDS ORDERED: morphine SULFATE 4 MG/ML VIAL ONE (09:34)
[2019-04-12] MEDS ORDERED: ACETAMINOPHEN INJECTION 100 ML IVPB ONE (09:35)
--- NOTE | 2019-04-12 09:48 | PDOC ---
History of Present Illness - General Chief Complaint: Pain Stated Complaint: ABD PAIN Time Seen by Provider: 04/12/19 08:34 - History of Present Illness Initial Comments: 04/12/19 09:47 Mr. Browne is a 38 yo M with pmhx of appendicitis s/p appendectomy in February [address] Hess, who presents to the ED with abdominal pain associated with vomiting and diarrhea since 2am this morning. Per the patient, he was in his usual state of health yesterday and went to bed without incident. He was awoken by pain around 2am and began having multiple episodes of vomiting and diarrhea. He says the pain varies in intensity but never goes away. He rates the pain as 8-10/10, and states it feels the same as when he had appendicitis. He did not try taking anything for the pain. He vomited twice while in the ED. On ROS he endorses chills, nausea, vomiting, diarrhea, and generalized weakness. He denies hematemasis, hematochezia, melena, dysuria, hematuria, CP or SOB. Past History - Past Medical History Allergies/Adverse Reactions: Allergies Allergy/AdvReac Type Severity Reaction Status Date / Time No Known Allergies Allergy Verified 04/12/19 08:23 Home Medications: Ambulatory Orders NK [No Known Home Medication] 02/16/19 COPD: No - Surgical History Appendectomy: Yes - Psycho Social/Smoking Cessation Hx Smoking History: Current every day smoker Have you smoked in the past 12 months: Yes Number of Cigarettes Smoked Daily: 0 Information on smoking cessation initiated: Yes 'Breaking Loose' booklet given: 02/16/19 Hx Alcohol Use: Yes Drug/Substance Use Hx: Yes Substance Use Type: Marijuana Hx Substance Use Treatment: No Review of Systems - Review of Systems Constitutional: Yes: Chills, Malaise. No: Diaphoresis, Fever HEENTM: No: Eye Pain, Blurred Vision, Ear Pain, Nose Pain, Throat Pain, Mouth Pain Respiratory: No: Cough, Shortness of Breath Cardiac (ROS): No: Chest Pain ABD/GI: Yes: Diarrhea, Nausea, Vomiting, Abdominal cramping. No: Abdominal Distended : No: Burning, Dysuria, Discharge, Testicular Pain Musculoskeletal: No: Back Pain, Muscle Pain Integumentary: No: Bruising, Pruritus, Rash Neurological: No: Headache, Numbness Endocrine: No: Excessive Sweating, Flushing, Intolerance to Cold, Intolerance to Heat All Other Systems: Reviewed and Negative *Physical Exam - Vital Signs Last Vital Signs Temp Pulse Resp BP Pulse Ox 97.4 F L 87 18 148/84 100 04/12/19 08:23 04/12/19 08:23 04/12/19 08:23 04/12/19 08:23 04/12/19 08:23 - Physical Exam General Appearance: Yes: Nourished, Appropriately Dressed, Moderate Distress HEENT: positive: EOMI, RENAN, Normal ENT Inspection Neck: positive: Trachea midline, Supple. negative: Tender Respiratory/Chest: positive: Lungs Clear, Normal Breath Sounds. negative: Respiratory Distress, Accessory Muscle Use Cardiovascular: positive: Regular Rhythm, Regular Rate, S1, S2. negative: Murmur Gastrointestinal/Abdominal: positive: Normal Bowel Sounds, Tender (diffuse tenderness, worse in suprapubic and periumbilical area. ), Soft, Guarding. negative: Pulsatile Mass, Distended, Rebound Musculoskeletal: positive: Normal Inspection, CVA Tenderness (R), Other. negative: Vertebral Tenderness Extremity: positive: Normal Capillary Refill, Normal Inspection, Normal Range of Motion. negative: Tender Integumentary: positive: Normal Color, Dry, Warm Neurologic: positive: integration architect II-XII NML intact, Fully Oriented, Normal Mood/Affect , Normal Response, Motor Strength 5/ ED Treatment Course - LABORATORY CBC & Chemistry Diagram: 04/12/19 09:15 04/12/19 09:15 Medical Decision Making - Medical Decision Making 04/12/19 09:56 Mr. Browne is a 38 yo M with pmhx of appendicitis s/p appendectomy in February [address] Hess, who presents to the ED with abdominal pain associated with vomiting and diarrhea since 2am this morning. Physical exam with abdominal tenderness throughout worse in suprapubic region, R side flank pain, and guarding. Concern for obstruction vs. nephrolithiasis vs cholelithiasis vs. diverticulitis Will obtain: - CBC - CMP - UA/ Ucx - Coags - Type and Screen - Lipase - CT abdomen with contrast Will give 4mg Morphine for pain in addition to ofirmev. 04/12/19 12:00 CT scan showing "Status post appendectomy sutures are identified. Watery stool in the cecum and proximal portion of the ascending colon without wall thickening. Does the patient have diarrhea? Correlate clinically. Likely fluid-filled small bowel loops in the right and left hemipelvis. Likely complex collection in the left hemipelvis, anteriorly measuring 3.7 x 3.3 cm with mild stranding of the surrounding fat, rule out an abscess. However, correlation with a CT scan of the abdomen and pelvis following oral contrast administration would be helpful to further assess this collection and differentiate it from adjacent fluid- filled bowel loops. There is diffuse thickening of the urinary bladder wall that may be partially due to inadequate distention. Cannot rule out cystitis. " Will consult Dr. Hess 04/12/19 12:09 Dr. Hess recommends repeat CT with PO contrast 04/12/19 15:25 CT with PO contrast showing " Previously described low-attenuation masslike density in the left hemipelvis, inferiorly/ anteriorly is again seen with mild stranding of the surrounding fat suggestive of a complex collection, rule out an abscess. Partially distended distal descending and sigmoid colon with suggestion of wall thickening, rule out colitis. Correlate clinically. No extra luminal air/peritoneum is identified. " Per Dr. Hess, pt will likely need to be seen by IR for drainage of the 3.7cmx3.3cm collection. Recommends pt be admitted to hospitalist service and will evaluate patient in AM. 04/12/19 17:24 Discussed case with hospitalist who in turn discussed case with IR. No medical interventions necessary for patient at this time, vitals are stable pt does not have a leukocytosis and pt has no signs of sepsis. IR able to see patient on Monday for drainage. Will reach out to [facility] to see if their IR physicians will be able to assess patient sooner. Will reach out to Dr. Hess to see if there is any objection to transferring the patient at this time. 04/12/19 17:45 - Spoke to Dr. Hess who had no objection to attempting to transfer patient. - Spoke with Dr. Ribeiro (IR) at [facility] who stated they would be able to assess/ drain fluid collection over the weekend. Will arrange ED to ED transfer with Dr. Jiménez at [facility] ED. Discussed options for treatment with patient and he elects to be transferred to [facility] at this time. Patient stable for transfer and transport will be arranged. Discharge - Discharge Information Problems reviewed: Yes Clinical Impression/Diagnosis: Pelvic abscess in male Condition: Stable Disposition: TRANSFER ACUTE CARE/OTHER HOSP - Admission No - Follow up/Referral Referrals: ON STAFF,NOT [Primary Care Provider] - - Patient Discharge Instructions - Post Discharge Activity - Transfer to Acute Care Facility Receiving Facility Name: [facility] Accepting Physician:: Dr. Jiménez (ED) and Dr. Ribeiro (IR)
[2019-04-12 10:04] LABS: BASO % 0.3 % (0-2.0); EOS % 0.1 % (0-4.5); HEMATOCRIT 44.3 % (35.4-49); HEMOGLOBIN 15.2 GM/dL (11.7-16.9); LYMPH % 7.3 % (8-40); MCH 32.8 pg (25.7-33.7); MCHC 34.4 g/dl (32.0-35.9); MEAN CELL VOLUME 95.4 fl (80-96); MEAN PLT VOLUME 7.5 fl (7.5-11.1); NEUT % 88.3 % (42.8-82.8); PLATELET COUNT 235 K/MM3 (134-434); RBC 4.64 M/mm3 (4.00-5.60); RDW 13.5 % (11.9-15.9); WHITE BLOOD COUNT 7.9 K/mm3 (4.0-10.0)
[2019-04-12 10:19] LABS: BILIRUBIN,TOTAL 1.2 mg/dL (0.2-1); BLOOD UREA NITROGEN 10.6 mg/dL (7-18); CALCIUM 9.6 mg/dL (8.5-10.1); POTASSIUM 3.6 mmol/L (3.5-5.1); TOT PROT 8.4 g/dl (6.4-8.2)
[2019-04-12 10:23] LABS: INR 0.92 (0.83-1.09); PROTHROMBIN TIME (PATIENT) 10.9 SEC (9.7-13.0)
[2019-04-12 10:45] LABS: URINE APPEARANCE CLEAR; URINE BILIRUBIN NEGATIVE (NEGATIVE); URINE COLOR YELLOW; URINE GLUCOSE (UA) NEGATIVE (NEGATIVE); URINE KETONE 1+ (NEGATIVE); URINE LEUK ESTERASE NEGATIVE (NEGATIVE); URINE NITRITE NEGATIVE (NEGATIVE); URINE PROTEIN 1+ (NEGATIVE); URINE UROBILINOGEN 0.2 mg/dL (0.2-1.0)
[2019-04-12 10:54] LABS: EPI CELLS 0-5 /HPF (0-5/HPF); URINE BACTERIA POSITIVE /hpf (NEGATIVE); URINE RBC 0-4 /hpf (0-4); URINE WBC 0-5 /hpf (0-5)
[2019-04-12] MEDS ORDERED: HYDROmorphone HCL CARPU-JECT 2 MG/1 ML DISP.SYRIN IVPUSH ONE (12:30)
[2019-04-12] MEDS ORDERED: HYDROmorphone HCl 2 MG/ML VIAL ONE (12:33)
--- NOTE | 2019-04-12 15:43 | CONSULT ---
- Consultation REQUESTING PROVIDER: Hal LEBRON CONSULT REQUEST: We have been asked to surgically evaluate this patient for nausea/vomiting/diarrhea/abdominal pain. PCP: HISTORY OF PRESENT ILLNESS: PRATIBHA who is a 38 y/o A/A male who is 55 days s/p uncomplicated laparoscopic appendectomy for an acute retrocecal appendicitis; after xfer to the floor from the PACU on the day of the surgery # hours post op a rapid response was called; he had been doing well until that point and c/o right hand spasm and uncontrolled abdominal apin which resolved w/ morphine; the rest of his post op course was uncomplicated and he was seen in the office post op w/o any concerns and was d/c'ed from office care to prn f/u. Pain statrted spontaneously earlier today and was sharp and unrelenting and associated w/vomiting and diarrhea. He has NOC. He feels better since arrival. PMHx: marijuana abuse PSHx: lap appendectomy as above. Home Medications Medication Instructions Recorded NK [No Known Home Medication] 02/16/19 Allergies Allergy/AdvReac Type Severity Reaction Status Date / Time No Known Allergies Allergy Verified 04/12/19 08:23 REVIEW OF SYSTEMS: CONSTITUTIONAL: Absent: fever, chills, diaphoresis, generalized weakness, malaise, loss of appetite, weight change CARDIOVASCULAR: Absent: chest pain, syncope, palpitations, irregular heart rate, lightheadedness , peripheral edema RESPIRATORY: Absent: cough, shortness of breath, dyspnea with exertion, wheezing, stridor, hemoptysis GASTROINTESTINAL: Present: abdominal pain, nausea, vomiting, diarrhea. GENITOURINARY: Absent: dysuria, frequency, urgency, hesitancy, hematuria, flank pain, genital pain MUSCULOSKELETAL: Absent: myalgia, arthralgia, joint swelling, back pain, neck pain SKIN: Absent: rash, itching, pallor HEMATOLOGIC/IMMUNOLOGIC: Absent: easy bleeding, easy bruising, lymphadenopathy NEUROLOGIC: Absent: headache, focal weakness, paresthesias, dizziness, unsteady gait, seizure, mental status changes, bladder or bowel incontinence PSYCHIATRIC: Absent: anxiety, depression, suicidal or homicidal ideation, hallucinations. PHYSICAL EXAM: GENERAL: Awake, alert, and fully oriented, in no acute distress. HEAD: Normal with no signs of trauma. EYES:, sclera anicteric, conjunctiva clear. NECK: Normal ROM, supple without lymphadenopathy, JVD, or masses. ABDOMEN: Soft, nontender, not distended, normoactive bowel sounds, no guarding, no rebound, no masses. No organomegaly. No hernias; healed port sites. MUSCULOSKELETAL: Normal ROM at all joints. No bony deformities or tenderness. No CVA tenderness. UPPER EXTREMITIES: 2+ pulses, warm, well-perfused. No cyanosis. Cap refill <2 seconds. No peripheral edema. LOWER EXTREMITIES: 2+ pulses, warm, well-perfused. No calf tenderness. No peripheral edema. NEUROLOGICAL: Normal speech, gait not observed. PSYCH: Cooperative. Good eye contact. Appropriate mood and affect. SKIN: Warm, dry, normal turgor, no rashes or lesions noted. Vital Signs Temperature 97.4 F L 04/12/19 08:23 Pulse Rate 87 04/12/19 08:23 Respiratory Rate 18 04/12/19 08:23 Blood Pressure 148/84 04/12/19 08:23 O2 Sat by Pulse Oximetry (%) 100 04/12/19 08:23 Lab Results WBC 7.9 K/mm3 (4.0-10.0) 04/12/19 09:15 RBC 4.64 M/mm3 (4.00-5.60) 04/12/19 09:15 Hgb 15.2 GM/dL (11.7-16.9) 04/12/19 09:15 Hct 44.3 % (35.4-49) D 04/12/19 09:15 MCV 95.4 fl (80-96) 04/12/19 09:15 MCHC 34.4 g/dl (32.0-35.9) 04/12/19 09:15 RDW 13.5 % (11.9-15.9) 04/12/19 09:15 Plt Count 235 K/MM3 (134-434) D 04/12/19 09:15 Sodium 139 mmol/L (136-145) 04/12/19 09:15 Potassium 3.6 mmol/L (3.5-5.1) 04/12/19 09:15 Chloride 106 mmol/L (98-107) 04/12/19 09:15 Carbon Dioxide 25 mmol/L (21-32) 04/12/19 09:15 Anion Gap 7 MMOL/L (8-16) L 04/12/19 09:15 BUN 10.6 mg/dL (7-18) 04/12/19 09:15 Creatinine 1.0 mg/dL (0.55-1.3) 04/12/19 09:15 Random Glucose 115 mg/dL (74-106) H 04/12/19 09:15 Calcium 9.6 mg/dL (8.5-10.1) 04/12/19 09:15 Blood Type O POSITIVE 04/12/19 09:15 Antibody Screen Negative 04/12/19 09:15 INR 0.92 (0.83-1.09) 04/12/19 09:15 CT scan a/p reviewed IMP: abdominal pain/diarrhea/nausea and vomiting of ? origin wCT abnormality adjacent to the bladder on the left. PLAN; Suggest admission/NPO/IVF/observation/?tox/drug screen?; findings and presentation do not seem related to the previous surgical procedure; consult IR for evaluation for drainage of cystic mass adjacent to bladder on the left. Pablo Hess MD FACS
[2019-04-12 19:14] VITALS: BP 121/72; PULSE 72; TEMP 100
== END 2019-04-12 20:17 | disposition short-term general hospital (02) ==
LOC: JER 08:20
PROC: 3E0337Z Introduction of Electrolytic and Water Balance Substance into Peripheral Vein, Percutaneous Approach (ICD-10-PCS; principal; 2019-04-12)
PROC: 3E033NZ Introduction of Analgesics, Hypnotics, Sedatives into Peripheral Vein, Percutaneous Approach (ICD-10-PCS; 2019-04-12)
PROC: 3E033NZ Introduction of Analgesics, Hypnotics, Sedatives into Peripheral Vein, Percutaneous Approach (ICD-10-PCS; 2019-04-12)
PROC: 3E033NZ Introduction of Analgesics, Hypnotics, Sedatives into Peripheral Vein, Percutaneous Approach (ICD-10-PCS; 2019-04-12)
DX: K65.1 Peritoneal abscess (principal); F17.210 Nicotine dependence, cigarettes, uncomplicated; F12.10 Cannabis abuse, uncomplicated; Z90.49 Acquired absence of other specified parts of digestive tract
CPT/HCPCS: 36415; 74176-TC; 74177-TC; 80053; 81003; 83605; 83690; 85025; 85610; 85730; 86850; 86900; 86901; 87086; 96361; 96374; 96375; 99283-25; J0131; J7030; Q9967